=== PATIENT | female | born 1960 | race Hispanic/Latino ===

== ENCOUNTER 2018-12-30 19:38 | Emergency (ER) | payer SELFPAY ==
--- NOTE | 2018-12-30 19:47 | Event Note ---
ED Screening Note Date of service: 12/30/18 Time: 19:43 ED Screening Note: This is a 58 y.o. F. that presents to the ER with urinary frequency, urgency, and dysuria since last night. Denies vaginal discharge, back pain, hematuria, nausea, or vomiting. PMH of HTN, HLD, anxiety, and insomnia. Current smoker This initial assessment/diagnostic orders/clinical plan/treatment(s) is/are subject to change based on patients health status, clinical progression and re- assessment by fellow clinical providers in the ED. Further treatment and workup at subsequent clinical providers discretion. Patient/guardian urged not to elope from the ED as their condition may be serious if not clinically assessed and managed. Initial orders include: Urinalysis
[2018-12-30 19:49] VITALS: BP 154/59
--- NOTE | 2018-12-30 21:12 | Emergency Department Report ---
ED Female HPI - General Chief complaint: Abdominal Pain Stated complaint: PAINFUL URINATION Time Seen by Provider: 12/30/18 19:43 Source: patient Mode of arrival: Ambulatory Limitations: No Limitations - History of Present Illness Initial comments: 58-year-old female presents to the emergency room for painful urination, urinary urgency. Patient denies any nausea vomiting fever chills or abdominal pain. Patient reports a past medical history of anxiety high cholesterol and insomnia. Patient currently takes metoprolol amlodipine Lipitor and Ambien. Complaint: dysuria -: Last night Severity scale (0 -10): 6 Quality: burning Worsens with: urination Are you Now?: No - Related Data Previous Rx's Medication Instructions Recorded Last Taken Type Nitrofurantoin [place]/M-Cryst 100 mg PO Q12HR #20 capsule 12/30/18 Unknown Rx [Macrobid CAP] Allergies Allergy/AdvReac Type Severity Reaction Status Date / Time No Known Allergies Allergy Unverified 12/30/18 19:41 ED Review of Systems ROS: Stated complaint: PAINFUL URINATION Other details as noted in HPI Comment: All other systems reviewed and negative Constitutional: denies: chills, fever Genitourinary: urgency, frequency. denies: dysuria ED Past Medical Hx - Past Medical History Previous Medical History?: Yes Hx Hypertension: Yes Hx Psychiatric Treatment: Yes (Anxiety) Additional medical history: High Cholesterol, Insomnia, - Surgical History Past Surgical History?: Yes Hx Cholecystectomy: Yes Additional Surgical History: Left arm tendon repair, Back surgery, HYSTERECTOMY. tonsillectomy - Social History Smoking Status: Current Every Day Smoker Substance Use Type: None - Medications Home Medications: Home Medications Medication Instructions Recorded Confirmed Last Taken Type Nitrofurantoin [place]/M-Cryst 100 mg PO Q12HR #20 capsule 12/30/18 Unknown Rx [Macrobid CAP] ED Physical Exam - General Limitations: No Limitations General appearance: alert, in no apparent distress - Head Head exam: Present: atraumatic, normocephalic - Eye Eye exam: Present: normal appearance - ENT ENT exam: Present: mucous membranes moist - GI/Abdominal GI/Abdominal exam: Present: soft, normal bowel sounds - Extremities Exam Extremities exam: Present: normal inspection - Back Exam Back exam: Present: normal inspection - Neurological Exam Neurological exam: Present: alert, oriented X3, normal gait - Psychiatric Psychiatric exam: Present: normal affect, normal mood - Skin Skin exam: Present: warm, dry, intact, normal color. Absent: rash ED Course Vital Signs 12/30/18 19:44 Temperature 98.4 F Pulse Rate 72 Respiratory 16 Rate Blood Pressure 154/59 O2 Sat by Pulse 97 Oximetry ED Medical Decision Making - Medical Decision Making 58-year-old female presents to the emergency room for painful urination, urinary urgency. Patient denies any nausea vomiting fever chills or abdominal pain. Patient reports a past medical history of anxiety high cholesterol and insomnia. Patient currently takes metoprolol amlodipine Lipitor and Ambien. Urinalysis shows a patient has positive nitrates, elevated WBC, 30 protein. Patient be treated for urinary tract infection with Macrobid 100 mg by mouth twice a day for 10 days. Patient is instructed to increase her water intake. Patient verbalized understanding Critical care attestation.: If time is entered above; I have spent that time in minutes in the direct care of this critically ill patient, excluding procedure time. ED Disposition Clinical Impression: UTI (urinary tract infection) Qualifiers: Urinary tract infection type: site unspecified Hematuria presence: without hematuria Qualified Code(s): N39.0 - Urinary tract infection, site not specified Disposition: DC-01 TO HOME OR SELFCARE Is pt being admited?: No Does the pt Need Aspirin: No Condition: Stable Instructions: Abdominal Pain (ED), Urinary Tract Infection in Women (ED) Prescriptions: Nitrofurantoin [place]/M-Cryst [Macrobid CAP] 100 mg PO Q12HR #20 capsule Referrals: Your,Provider [Other] - 3-5 Days
[2018-12-30 21:13] LABS: Bacteria,Urine 1+ /HPF (Negative); Bilirubin,Urine NEG (Negative); Blood,Urine MOD (Negative); Color,Urine Yellow (Yellow); Mucus,Urine 3+ /HPF; Sperm,Urine FEW /HPF (NP); Urobilinogen,Urine < 2.0 mg/dL (<2.0)
== END 2018-12-30 21:50 | disposition home or self-care (01) ==
LOC: ED 19:38
DX: N39.0 Urinary tract infection, site not specified (principal); I10 Essential (primary) hypertension; F41.9 Anxiety disorder, unspecified; E78.00 Pure hypercholesterolemia, unspecified; G47.00 Insomnia, unspecified; F17.200 Nicotine dependence, unspecified, uncomplicated
CPT/HCPCS: 81001; 87076; 87086; 87186